=== PATIENT | male | born 1965 | race Caucasian/White ===

== ENCOUNTER 2017-12-18 12:27 | Day surgery (SDC) | payer OTHER ==
[2017-12-18] MEDS ORDERED: MIDAZOLAM 1 MG/ML 2 ML INJ ×2 (13:43)
[2017-12-18] MEDS ORDERED: FENTAnyl 50 MCG/ML VIAL (13:43)
== END 2017-12-18 15:15 | disposition home or self-care (01) ==
LOC: GIL 12:27
DX: K63.9 Disease of intestine, unspecified (principal)
CPT/HCPCS: 45378

== ENCOUNTER 2018-08-03 12:20 | Day surgery (SDC) | payer OTHER ==
[2018-08-03] MEDS ORDERED: LIDOCAINE 4% SOLUTION 50 ML BTL (13:26)
[2018-08-03] MEDS ORDERED: MIDAZOLAM 1 MG/ML 2 ML INJ ×2 (14:24)
[2018-08-03] MEDS ORDERED: FENTAnyl 50 MCG/ML VIAL ×2 (14:25)
== END 2018-08-03 15:20 | disposition home or self-care (01) ==
LOC: GIL 12:20
DX: K21.0 Gastro-esophageal reflux disease with esophagitis (principal); K44.9 Diaphragmatic hernia without obstruction or gangrene; K29.70 Gastritis, unspecified, without bleeding; E78.5 Hyperlipidemia, unspecified
CPT/HCPCS: 43239; 88305

== ENCOUNTER 2018-12-21 08:57 | Emergency (ER) | payer OTHER ==
[2018-12-21 10:43] LABS: ADD MAN DIFF? NO
[2018-12-21 10:46] LABS: BASOPHILS % 0.4 % (0.0-2.0); EOSINOPHILS # 0.2 10^3/ul (0.0-0.5); EOSINOPHILS % 2.8 % (0.0-7.0); HEMATOCRIT 39.9 % (42.0-52.0); LYMPHOCYTES # 2.3 10^3/ul (0.8-2.9); LYMPHOCYTES % 29.8 % (15.0-51.0); MEAN CORPUSCULAR HEMOGLOBIN 31.3 pg (29.0-33.0); MEAN CORPUSCULAR HGB CONC 35.1 g/dl (32.0-37.0); MEAN CORPUSCULAR VOLUME 89.3 fl (82.0-101.0); MEAN PLATELET VOLUME 9.4 fl (7.4-10.4); MONOCYTE # 0.5 10^3/ul (0.3-0.9); MONOCYTES % 6.2 % (0.0-11.0); NEUTROPHIL # 4.7 10^3/ul (1.6-7.5); NEUTROPHILS % 60.5 % (39.0-77.0); PLATELET COUNT 193 10^3/UL (140-415); RED BLOOD COUNT 4.47 10^6/ul (4.70-6.10); RED CELL DISTRIBUTION WIDTH 11.8 % (11.5-14.5)
[2018-12-21 10:46] LABS: WHITE BLOOD COUNT 7.8 10^3/ul (4.8-10.8)
[2018-12-21] MEDS: PANTOPRAZOLE 40 MG INJ IV (10:53)
[2018-12-21] MEDS: LIDOCAINE/MYLANTA 40 ML BTL PO (10:53)
[2018-12-21] MEDS: BELLADONNA/PHENOBARBITAL TAB PO (10:53)
[2018-12-21] MEDS: FAMOTIDINE 20 MG TAB PO (10:53)
[2018-12-21] MEDS: SOD CHLORIDE 0.9% 1,000 ML IV (10:54)
[2018-12-21 11:09] LABS: ALANINE AMINOTRANSFERASE 52 IU/L (13-69); ALBUMIN 4.6 g/dl (3.3-4.9); ALBUMIN/GLOBULIN RATIO 1.39; ALKALINE PHOSPHATASE 60 IU/L (42-121); ANION GAP 13 (5-13); ASPARTATE AMINO TRANSFERASE 50 IU/L (15-46); BILIRUBIN,INDIRECT 0.3 mg/dl (0-1.1); BILIRUBIN,TOTAL 0.3 mg/dl (0.2-1.3); BLOOD UREA NITROGEN 10 mg/dl (7-20); CALCIUM 9.6 mg/dl (8.4-10.2); CARBON DIOXIDE 29 mmol/L (21-31); CHLORIDE 101 mmol/L (97-110); CREATININE 0.95 mg/dl (0.61-1.24); Estimated GFR > 60 mL/min (>60); GLUCOSE 99 mg/dl (70-220); LIPASE 37 U/L (23-300); POTASSIUM 4.6 mmol/L (3.5-5.1); SODIUM 143 mmol/L (135-144); TOTAL PROTEIN 7.9 g/dl (6.1-8.1)
[2018-12-21 11:18] LABS: INR 0.88; PARTIAL THROMBOPLASTIN TIME 32.5 Sec (23.0-35.0); PT RATIO 0.9
[2018-12-21 11:21] LABS: TROPONIN-I < 0.012 ng/ml (0.000-0.120)
[2018-12-21] MEDS: DIATR MEGLU/DIATRIZOATE SODIUM 120 ML BTL PO (12:18)
[2018-12-21] MEDS: BARIUM SULF 2% 450 ML BTL (BERRY SMOOTHIE) PO (13:32)
[2018-12-21] MEDS: LORAZEPAM 0.5 MG TAB PO (13:36)
== END 2018-12-21 15:05 | disposition home or self-care (01) ==
LOC: E/R 08:57
DX: K21.0 Gastro-esophageal reflux disease with esophagitis (principal); K44.9 Diaphragmatic hernia without obstruction or gangrene
CPT/HCPCS: 36415; 71045; 71250; 74176; 80053; 83690; 84484; 85025; 85610; 85730; 93005; 96374; 99285-25